=== PATIENT | male | born 2000 | race Caucasian/White ===

== ENCOUNTER 2018-11-18 19:50 | Emergency (ER) | payer OTHER ==
[2018-11-18 20:42] LABS: PLATELET COUNT 252 10^3/uL (150-400)
--- NOTE | 2018-11-18 20:47 | EDPHY ---
General Time Seen by Provider: 11/18/18 19:59 Narrative: CLINICAL IMPRESSION: Tonsillitis, possible scarlet fever ASSESSMENT/PLAN: 18-year-old male presents to the emergency department from urgent care for evaluation of sore throat and rash. Patient reports 3 days of painful swallowing and a nonpruritic rash to the arms. On exam he has faintly exudative tonsillitis, no asymmetry, no uvulitis, peritonsillar abscess, retropharyngeal abscess, Rusty's angina. No signs of severe dehydration. He has a sandpaper rash to both arms and torso as well as a small patch of petechiae to the right upper arm and left inner thigh. Patient reports numerous recent bloody noses. CBC shows no thrombocytopenia. I suspect his symptoms are secondary to strep tonsillitis and scarlet fever. He had a negative rapid strep test at Urgent Care however given the appearance of his tonsils and documented temperatures at home of 102, I have recommended treatment. Patient agrees. Amoxicillin started in the ED, prescription given, primary care follow-up encouraged, warning signs return to ED sooner discussed in discharge. DIFFERENTIAL DX: Differential includes but not limited to strep tonsillitis, scarlet fever, viral pharyngitis, thrombocytopenia ED PROCEDURES: See lab and/or imaging results below Rapid strep by Urgent Care negative. ED COURSE: CBC shows no evidence of thrombocytopenia Lab results discussed with the patient at 8:45 p.m.. He would like to try antibiotics. Presuming throat culture was sent by Urgent Care. Amoxicillin given in ED. CHIEF COMPLAINT: Sore throat and rash x3 days HPI: 18-year-old male presents to the emergency department from urgent care for evaluation of sore throat and rash x3 days. Patient states he was sent here because they were concerned that his uvula was deviated and he may have an abscess behind his tonsil. Rapid strep at Urgent Care was negative. Patient reports a red slightly itchy rash to arms, chest and inner thigh. He also reports bloody noses over the last day, typically exacerbated by blowing his nose. He is tolerating his secretions well and has been able to swallow. He reports fevers as high as 102 at home last night. No history of chronic strep throat. No known exposures. No neck swelling. PAST MEDICAL HISTORY: None reported See triage summary and nurse notes for addition applicable history Pertinent Past Surgical History: None reported Family History: Noncontributory Social History: Otherwise healthy, nonsmoker REVIEW OF SYSTEMS: A full 10 point review of systems was negative except for those mentioned in HPI. PHYSICAL EXAM: General Appearance: Alert, oriented, appropriate, cooperative, NAD, well hydrated, non-toxic appearing, hypertensive, no hypoxia. HEENT: TMs are clear bilaterally no perforation or FB, no injection, no evidence of serous or mucopurulent otitis. Bilateral, tonsillar hypertrophy with erythema and exudate. There is no peritonsillar abscess. Tonsillar fossa is soft with no fluctuance. No uvular deviation or uvulitis. No evidence of retropharyngeal abscess. Floor of mouth is soft, no evidence of Rusty's. Dentition without abnormality. Eyes: PERRLA, no acute vision change, nystagmus, swelling, discharge, pain or photosensitivity. Conjunctiva pink, no pallor or injection Neck: Supple, nontender, no lymphadenopathy, no midline pain, FROM, no meningismus. Respiratory: There are no retractions, lungs are clear to auscultation. Cardiac: Regular rate and rhythm, no murmurs or gallops. Skin: Warm, dry, red, sandpaper rash noted to both arms. Small patch of petechiae to the right upper arm and right inner thigh. No strawberry tongue or intraoral petechiae. MEDICAL DECISION MAKING: Patient was seen independently. Secondary supervising physician at time of evaluation was: Dr Bass. Diagnosis: Tonsillitis, rash. New, requires workup Summary: See Assessment and Plan for summary of ED visit Patient Progress: Stable for discharge. - History Smoking Status: Never smoked - Objective Vital Signs: Initial Vital Signs Temperature (C) 36.3 C 11/18/18 19:53 Heart Rate 85 11/18/18 19:53 Respiratory Rate 16 11/18/18 19:53 Blood Pressure 146/78 H 11/18/18 19:53 O2 Sat (%) 100 11/18/18 19:53 O2 Delivery Mode Room Air Allergies/Adverse Reactions: No Known Allergies Allergy (Unverified 11/18/18 19:56) Home Medications: Medication Instructions Recorded Amoxicillin Trihydrate 500 mg PO TID #30 cap 11/18/18 [Amoxicillin 500mg capsule] Laboratory Results: Laboratory Results 11/18/18 20:33 11/18/18 20:33 WBC 11.81 10^3/uL H 10^3/uL (3.80-9.50) RBC 4.89 10^6/uL 10^6/uL (4.40-6.38) Hgb 15.0 g/dL g/dL (13.7-17.5) Hct 43.2 % % (40.0-51.0) MCV 88.3 fL fL (81.5-99.8) MCH 30.7 pg pg (27.9-34.1) MCHC 34.7 g/dL g/dL (32.4-36.7) RDW 11.7 % % (11.5-15.2) Plt Count 252 10^3/uL 10^3/uL (150-400) MPV 10.0 fL fL (8.7-11.7) Neut % (Auto) 75.8 % H % (39.3-74.2) Lymph % (Auto) 13.6 % L % (15.0-45.0) [place] % (Auto) 9.3 % % (4.5-13.0) Eos % (Auto) 0.7 % % (0.6-7.6) Baso % (Auto) 0.3 % % (0.3-1.7) Nucleat RBC Rel Count 0.0 % % (0.0-0.2) Absolute Neuts (auto) 8.94 10^3/uL H 10^3/uL (1.70-6.50) Absolute Lymphs (auto) 1.61 10^3/uL 10^3/uL (1.00-3.00) Absolute Monos (auto) 1.10 10^3/uL H 10^3/uL (0.30-0.80) Absolute Eos (auto) 0.08 10^3/uL 10^3/uL (0.03-0.40) Absolute Basos (auto) 0.04 10^3/uL 10^3/uL (0.02-0.10) Absolute Nucleated RBC 0.00 10^3/uL 10^3/uL (0-0.01) Immature Gran % 0.3 % % (0.0-1.1) Immature Gran # 0.04 10^3/uL 10^3/uL (0.00-0.10) Medications Given: Discontinued Medications Amoxicillin (Amoxicillin) 500 mg PO EDNOW ONE PRN Reason: Protocol Stop: 11/18/18 20:52 Last Admin: 11/18/18 21:02 Dose: 500 mg Departure - Departure Disposition: Home, Routine, Self-Care Clinical Impression: Tonsillitis, Rash in adult Condition: Good Instructions: Acute Rash (ED), Tonsillitis (ED) Additional Instructions: DISCHARGE INSTRUCTIONS FROM YOUR DOCTOR Thank you for visiting our emergency department today. You were treated by a physician real estate assistant today and your case was reviewed with our ED Attending physician. Please keep in mind that discharge from the emergency department does not mean that there is nothing wrong - it simply means that we have not identified an emergency condition that requires further evaluation or treatment in the hospital. You should always plan to follow up with primary care for re- evaluation of your condition in the next 2-3 days. If you have been referred to a specialist, please call as soon as possible (today or tomorrow) to schedule your follow up appointment at the appropriate time. EXAM FINDINGS APPEAR CONSISTENT WITH A BACTERIAL TONSIL INFECTION. YOU DO NOT APPEAR TO HAVE A PERITONSILLAR ABSCESS OR RETROPHARYNGEAL ABSCESS AND I DO NOT BELIEVE THE REQUIRE AN EMERGENT CT SCAN TONIGHT. URGENT CARE SHOULD HAVE SENT A THROAT CULTURE WHICH MAY TAKE 2-3 DAYS TO COME BACK. LAB WORK IS REASSURING, NORMAL PLATELET COUNT. OFTEN TIMES YOU CAN DEVELOPED A RASH WITH STREP THROAT. ANTIBIOTICS WERE INITIATED IN THE EMERGENCY DEPARTMENT AND A PRESCRIPTION WAS GIVEN. PLEASE FILL THESE TOMORROW IN TAKE THE FULL COURSE. PLEASE FOLLOW-UP WITH A PRIMARY CARE DOCTOR. IF YOU DO NOT HAVE 1 A REFERRAL WAS GIVEN. PLEASE RETURN TO THE EMERGENCY DEPARTMENT IMMEDIATELY FOR INCREASED THROAT SWELLING, INABILITY TO SWALLOW YOUR OWN SALIVA, HIGH FEVERS, NECK SWELLING, WORSENING RASH , PERSISTENT BLOODY NOSES OR ANY OTHER CONCERN. People present with illnesses and injuries in different ways, and it is always possible that we have missed something. You may always return for re-evaluation if symptoms worsen or if they are not improving or if you develop new/different symptoms. Again, thank you for choosing our emergency department. We hope that you feel better. Referrals: NONE *PRIMARY CARE P,. [Primary Care Provider] - As per Instructions Yuly Rucker MD [Medical Doctor] - 2-3 days, call for appt. Prescriptions: Amoxicillin Trihydrate [Amoxicillin 500mg capsule] 500 mg PO TID #30 cap
[2018-11-18 21:09] VITALS: BP 140/83
== END 2018-11-18 21:09 | disposition home or self-care (01) ==
DX: J03.90 Acute tonsillitis, unspecified (principal); R21 Rash and other nonspecific skin eruption

== ENCOUNTER 2018-12-23 18:05 | Emergency (ER) | payer OTHER ==
[2018-12-23] MEDS ORDERED: HYDROmorphONE/DILAUDID 2 MG/ML INJ IM ONE (18:33)
[2018-12-23] MEDS ORDERED: HYDROmorphONE/DILAUDID 1 MG/ML INJ ONE (18:35)
--- NOTE | 2018-12-23 18:36 | EDPHY ---
H & P Stated Complaint: Fell 15 feet rock climbing; landed on feet, injured BL ankles Time Seen by Provider: 12/23/18 18:28 HPI/ROS: CHIEF COMPLAINT: Bilateral foot pain HISTORY OF PRESENT ILLNESS: Patient is a 18-year-old man who fell approximately 15 ft while rock climbing. He landed on both feet. He is complaining of pain in his right ankle and foot as well as pain in his left ankle. He has minimal swelling in his left ankle. This happened about an hour ago and his friends carried him out. He denies injuries to his head neck or back. No upper extremity injuries. No low back pain. No numbness or weakness. He states that he can bear weight on his left ankle but not on his right. Severity: Moderate Modifying factors: Worse with palpation or weight-bearing REVIEW OF SYSTEMS: Constitutional: denies: chills, fever, recent illness, recent injury EENTM: denies: blurred vision, double vision, nose congestion Respiratory: denies: cough, shortness of breath Cardiac: denies: chest pain, irregular heart rate, lightheadedness, palpitations Gastrointestinal/Abdominal: denies: abdominal pain, diarrhea, nausea, vomiting, blood streaked stools Genitourinary: denies: dysuria, frequency, hematuria, pain Musculoskeletal: See HPI Skin: denies: lesions, rash, jaundice, bruising Neurological: denies: headache, numbness, paresthesia, tingling, dizziness, weakness Hematologic/Lymphatic: denies: blood clots, easy bleeding, easy bruising Immunologic/allergic: denies: HIV/AIDS, transplant 10 systems reviewed and negative except as noted EXAM: GENERAL: Well-appearing, well-nourished and in no acute distress. HEAD: Atraumatic, normocephalic. EYES: Pupils equal round and reactive to light, extraocular movements intact, sclera anicteric, conjunctiva are normal. ENT: TMs normal, nares patent, oropharynx clear without exudates. Moist mucous membranes. NECK: Normal range of motion, supple without lymphadenopathy or JVD. LUNGS: Breath sounds clear HEART: Regular rate and rhythm ABDOMEN: Soft, nontender, normoactive bowel sounds. No guarding, no rebound. No masses appreciated. BACK: No CVA tenderness, no spinal tenderness, step-offs or deformities EXTREMITIES: Left ankle slightly swollen, tender, right ankle and foot tenderness but no swelling or deformity. Normal movement and capillary refill distally. NEUROLOGICAL: Cranial nerves II through XII grossly intact. Normal speech, normal gait. 5/5 strength, normal movement in all extremities, normal sensation , normal reflexes PSYCH: Normal mood, normal affect. SKIN: Warm, dry, normal turgor, no visible rashes or lesions. Source: Patient Exam Limitations: No limitations - Personal History Current Tetanus Diphtheria and Acellular Pertussis (TDAP): Yes - Medical/Surgical History Hx Asthma: No Hx Chronic Respiratory Disease: No Hx Diabetes: No Hx Cardiac Disease: No Hx Renal Disease: No Hx Cirrhosis: No Hx Alcoholism: No Hx HIV/AIDS: No Hx Splenectomy or Spleen Trauma: No Other PMH: none - Family History Significant Family History: No pertinent family hx - Social History Smoking Status: Never smoked Alcohol Use: Sober Drug Use: None Constitutional: Initial Vital Signs Temperature (C) 37 C 12/23/18 18:11 Heart Rate 106 H 12/23/18 18:11 Respiratory Rate 14 12/23/18 18:11 Blood Pressure 153/85 H 12/23/18 18:11 O2 Sat (%) 96 12/23/18 18:11 O2 Delivery Mode Room Air Allergies/Adverse Reactions: No Known Allergies Allergy (Unverified 11/18/18 19:56) Home Medications: Medication Instructions Recorded Amoxicillin Trihydrate 500 mg PO TID #30 cap 11/18/18 [Amoxicillin 500mg capsule] Hydrocodone/APAP 5/325 [[place] 1 - 2 tab PO Q4H PRN #14 tab 12/23/18 5/325 (RX)] Medical Decision Making - Diagnostics Imaging Results: Imaging Impressions Ankle X-Ray 12/23/18 18:23 Impression: Minimally displaced fracture of the tip of the lateral malleolus. Foot X-Ray 12/23/18 18:23 Impression: No evidence for fracture left foot. Ankle X-Ray 12/23/18 18:43 Impression: No evidence for acute fracture right ankle. Foot X-Ray 12/23/18 18:43 Impression: Fracture dislocation of the distal fourth and fifth metatarsal and proximal phalanx, as above and mildly angulated fracture of the distal metadiaphysis of the third metatarsal. Imaging: Discussed imaging studies w/ server manager Radiologist Procedures: Orthopedic reduction: Patient's right 5th toe was anesthetized with 5 cc lidocaine. I then reduced his MTP joint with direct pressure and traction. He tolerated the procedure well. Post reduction x-rays ordered. Procedure performed by me. Patient was then placed in a Marquis boot. Procedure: Splint placement. A Marquis boot was applied. After application of the splint I returned and re- examined the patient. The splint was adequately immobilizing the joint and distal to the splint the patient's circulation and sensation was intact. His left ankle was also wrapped with Rito wrap. ED Course/Re-evaluation: 7:15 p.m. we reviewed the x-rays. The patient has a sprained left ankle and fractures to 3rd 4th and 5th metatarsal head as well as a 5th MTP dislocation. Will attempt to reduce. Discussed the case with Dr. Rose who is on-call for Orthopedics. He states that reduction can be attempted but is not completely necessary. He will see the patient early next week to plan surgical repair. Discussed this with the patient. He feels that he will be able to get around with crutches and brace on his left ankle. He will also have a Marquis boot on his right foot. 7:40 p.m. I was able to easily reduce the patient's toe. Will obtain post reduction x-rays in place in Marquis boot. He tolerated the procedure well. Differential Diagnosis: Partial list of the Differential diagnosis considered include but were not limited to; foot fracture, ankle fracture, sprain, dislocation and although unlikely based on the history and physical exam, I also considered nerve injury , vascular injury, low back injury. I discussed these differential diagnoses and the plan with the patient as well as the usual and expected course. The patient understands that the diagnosis is provisional and that in medicine we are not always correct and that further workup is often warranted. Usual and customary warnings were given. All of the patient's questions were answered. The patient was instructed to return to the emergency department should the symptoms at all worsen or return, otherwise to followup with the physician as we discussed. - Data Points Medications Given: Discontinued Medications Hydrocodone Bitart/Acetaminophen ([place] 5/325) 2 tab PO EDNOW ONE Stop: 12/23/18 19:44 Last Admin: 12/23/18 19:48 Dose: 2 tab Hydrocodone Bitart/Acetaminophen ([place] 5/325mg Prepack#6) 1 btl TAKEHOME EDNOW ONE Stop: 12/23/18 20:11 Last Admin: 12/23/18 20:19 Dose: 1 btl Hydromorphone HCl (Dilaudid) 1 mg IM EDNOW ONE Stop: 12/23/18 18:34 Last Admin: 12/23/18 18:41 Dose: 1 mg Departure - Departure Disposition: Home, Routine, Self-Care Clinical Impression: Left ankle sprain Qualifiers: Encounter type: initial encounter Involved ligament of ankle: unspecified ligament Qualified Code(s): S93.402A - Sprain of unspecified ligament of left ankle, initial encounter Foot fracture, right Qualifiers: Encounter type: initial encounter Fracture type: closed Qualified Code(s): S92.901A - Unspecified fracture of right foot, initial encounter for closed fracture Dislocation of toe of right foot Qualifiers: Encounter type: initial encounter Qualified Code(s): S93.104A - Unspecified dislocation of right toe(s), initial encounter Condition: Fair Instructions: Hydrocodone/Acetaminophen (By mouth), Ankle Sprain (ED), Crutch Instructions (ED), Foot Fracture in Adults (ED) Referrals: NONE *PRIMARY CARE P,. [Primary Care Provider] - As per Instructions Jose Rose MD [Medical Doctor] - 2-3 days, call for appt. Prescriptions: Hydrocodone/APAP 5/325 [[place] 5/325 (RX)] 1 - 2 tab PO Q4H PRN #14 tab PRN Reason: Pain, Moderate
[2018-12-23] MEDS ORDERED: HYDROCODONE/APAP 5/325 TAB PO ONE (19:43)
[2018-12-23] MEDS ORDERED: HYDROCOD/APAP 5/325 PREPACK#6 BTL TAKEHOME ONE ×2 (20:10)
[2018-12-23 20:23] VITALS: BP 122/77
== END 2018-12-23 20:22 | disposition home or self-care (01) ==
PROC: 0QSQXZZ Reposition Right Toe Phalanx, External Approach (ICD-10-PCS; principal; 2018-12-23)
DX: S92.351A Displaced fracture of fifth metatarsal bone, right foot, initial encounter for closed fracture (principal); S92.341A Displaced fracture of fourth metatarsal bone, right foot, initial encounter for closed fracture; S92.331A Displaced fracture of third metatarsal bone, right foot, initial encounter for closed fracture; S82.62XA Displaced fracture of lateral malleolus of left fibula, initial encounter for closed fracture; S93.104A Unspecified dislocation of right toe(s), initial encounter; S93.402A Sprain of unspecified ligament of left ankle, initial encounter; W17.89XA Other fall from one level to another, initial encounter; Y93.31 Activity, mountain climbing, rock climbing and wall climbing; Y92.828 Other wilderness area as the place of occurrence of the external cause
CPT/HCPCS: J1170; L4350; L4386

== ENCOUNTER 2019-01-12 19:23 | Emergency (ER) | payer OTHER | END 2019-01-12 21:26 | disposition home or self-care (01) ==

== ENCOUNTER 2019-01-25 19:58 | Emergency (ER) | payer OTHER | END 2019-01-25 23:26 | disposition home or self-care (01) ==